=== PATIENT | female | born 1990 | race African-American/Black ===

== ENCOUNTER 2018-01-05 00:50 | Inpatient (IN) ==
[2018-01-05] MEDS ORDERED: Sod Chloride 0.9% Inj 1,000 ML IV.SIG ONE (05:36)
--- NOTE | 2018-01-05 06:21 | ED ---
HPI General Chief Complaint: Abdominal Pain Stated Complaint: Abd pain Time Seen by Provider: 01/05/18 02:55 Source: patient Mode of arrival: ambulatory Limitations: no limitations History of Present Illness HPI narrative: 27-year-old female presents to the emergency department with complaint of nausea abdominal pain and multiple episodes of diarrhea 1 week. No mucoid diarrhea no bloody diarrhea no hematochezia no melena. She denies vomiting. Patient states that no one in her household is ill. Patient states she finished antibiotic for UTI proximity to 3 weeks ago. Patient had no fever chills. Patient states multiple episodes daily of diarrhea but no weight loss and be taking oral hydration well. Appetite has not changed. Patient denies . Patient status post tubal ligation. Patient denies dietary indiscretion well water ingestion or foreign travel. Patient is unable to identify exacerbating or alleviating factors. complaint: abdominal pain Onset (ago): week(s) Pain Consistency: intermittent Location: diffuse Severity: moderate Quality: cramping Radiation: none Migration to: no migration Relieving factors: nothing Exacerbating factors: nothing Associated symptoms: nausea and diarrhea Related Data Patient : No Home Medications Medication Instructions Recorded Confirmed No Known Home Medications 01/05/18 01/05/18 Allergies Allergy/AdvReac Type Severity Reaction Status Date / Time prednisone AdvReac Mild Nausea/Vomi Unverified 12/17/16 13:41 ting Review of Systems ROS: all other systems reviewed are negative PMFSH Medical History Medical History Patient denies medical problems (Acute) Surgical History Surgical History No history of previous surgery (Acute) Social History Social History Substance History: No History of Abuse Smoking Status: Current every day smoker Tobacco Type: Cigarettes How Often Do You Have a Drink Containing Alcohol: 4 or more times a week Recent Travel in [facility] within the Last 8 Weeks: No Recent Out of Country Travel within the Last 8 Weeks: No Immunization History Tetanus Immunization: >5 Years Hx Influenza Vaccine This Season: No Exam Narrative Exam Narrative: GENERAL: Well-nourished, well-developed patient. SKIN: Focused skin assessment warm/dry. HEAD: Normocephalic. EYES: No scleral icterus. No injection or drainage. NECK: Supple, trachea midline. No JVD or lymphadenopathy. CARDIOVASCULAR: Regular rate and rhythm without murmurs, gallops, or rubs. RESPIRATORY: Breath sounds equal bilaterally. No accessory muscle use. GASTROINTESTINAL: Abdomen soft, non-tender, nondistended. MUSCULOSKELETAL: No cyanosis, or edema. BACK: Nontender without obvious deformity. No CVA tenderness. Course Initial Documented Vital Signs Temperature 97.8 F 01/05/18 00:54 Pulse Rate 75 01/05/18 00:54 Respiratory Rate 16 01/05/18 00:54 Blood Pressure 134/75 01/05/18 00:54 Pulse Oximetry 98 01/05/18 00:54 Last Documented Vital Signs Temperature 97.8 F 01/05/18 00:54 Pulse Rate 54 L 01/05/18 08:39 Respiratory Rate 20 01/05/18 08:39 Blood Pressure 85/48 L 01/05/18 08:39 Pulse Oximetry 100 01/05/18 08:39 Medical Decision Making MDM Narrative Medical decision making narrative: 27-year-old female with multiple episodes of watery diarrhea with nausea and intermittent crampy abdominal pain no fever no chills no dysuria no dietary indiscretion well water ingestion no foreign travel. IV access obtained specimens collected and sent for his Lab values are normal; CT imaging negative; patient is stable for outpatient management encouraged to follow clear liquid diet for next 1224 hrs. advance as tolerated bland/brat diet and regular diet and to use [id number] Imodium per package directions and follow-up with primary care provider Medical Screen Exam Complete: Yes Emergency Medical Condition: Yes Differential Diagnosis Differential Diagnosis: Diarrhea illness, gastroenteritis, UTI, electrolyte disturbance, bowel obstruction, colitis, Medical Records Medical records reviewed: Yes I reviewed the patient's medical records. Lab Data Lab results reviewed: Yes I reviewed the patient's lab results. Lab results narrative: poc : negative Result diagrams: 01/05/18 06:00 01/05/18 06:00 Lab Results 01/05/18 01/05/18 01/05/18 Range/Units 06:00 06:00 06:00 WBC 8.9 (4.0-11.0) th/mm3 RBC 4.97 (4.00-5.30) mil/mm3 Hgb 12.3 (11.6-15.3) gm/dL Hct 37.8 (35.0-46.0) % MCV 76.0 L (80.0-100.0) fL MCH 24.7 L (27.0-34.0) pg MCHC 32.5 (32.0-36.0) % RDW 15.2 (11.6-17.2) % Plt Count 394 (150-450) th/mm3 MPV 9.1 (7.0-11.0) fL Neut % (Auto) 49.3 (16.0-70.0) % Lymph % (Auto) 33.7 (9.0-44.0) % Perkins % (Auto) 9.8 H (0.0-8.0) % Eos % (Auto) 6.8 H (0.0-4.0) % Baso % (Auto) 0.4 (0.0-2.0) % Neut # (Auto) 4.4 (1.8-7.7) th/mm3 Lymph # (Auto) 3.0 (1.0-4.8) th/mm3 Perkins # (Auto) 0.9 (0.0-0.9) th/mm3 Eos # (Auto) 0.6 H (0.0-0.4) th/mm3 Baso # (Auto) 0.0 (0.0-0.2) th/mm3 WBC Differential . Differential Comment Auto diff final Sodium 139 (136-145) meq/L Potassium 4.0 (3.5-5.1) meq/L Chloride 106 (98-107) meq/L Carbon Dioxide 25.8 (21.0-32.0) meq/L Anion Gap 7 (5-15) meq/L BUN 11 (7-18) mg/dL Creatinine 0.90 (0.50-1.00) mg/dL Estimated GFR Greater than 89 (>89) mL/min Random Glucose 84 (74-106) mg/dL Calcium 9.1 (8.5-10.1) mg/dL Total Bilirubin 0.2 (0.2-1.0) mg/dL AST 29 (15-37) U/L ALT 30 (10-53) U/L Alkaline Phosphatase 104 (45-117) U/L Total Protein 8.3 H (6.4-8.2) g/dL Albumin 3.4 (3.4-5.0) g/dL Lipase 97 (73-393) U/L Urine Color Yellow (Yellw/Straw) Urine Clarity Hazy H (Clear) Urine pH 5.0 (5.0-8.5) Ur Specific [place] 1.026 (1.002-1.035) Urine Protein Negative (Neg-Trace) mg/dL Urine Glucose (UA) Negative (Negative) mg/dL Urine Ketones Negative (Negative) mg/dL Urine Occult Blood Negative (Negative) Urine Nitrate Negative (Negative) Urine Bilirubin Negative (Negative) Urine Urobilinogen Less than 2 (Less than 2) mg/dL Ur Leukocyte Esterase Negative (Negative) Urine RBC 1 (0-3) /hpf Urine WBC 1 (0-5) /hpf Ur Squamous Epith Cells 2 (0-5) /hpf Urine Mucus Few H (Occasional) /lpf Micro UA Comment Culture not ind Ur Microscopic Review Not Reportable Urine Culture Comments Culture not ind St C. diff Tox Epid 027 (Negative) 01/05/18 Range/Units 06:00 WBC (4.0-11.0) th/mm3 RBC (4.00-5.30) mil/mm3 Hgb (11.6-15.3) gm/dL Hct (35.0-46.0) % MCV (80.0-100.0) fL MCH (27.0-34.0) pg MCHC (32.0-36.0) % RDW (11.6-17.2) % Plt Count (150-450) th/mm3 MPV (7.0-11.0) fL Neut % (Auto) (16.0-70.0) % Lymph % (Auto) (9.0-44.0) % Perkins % (Auto) (0.0-8.0) % Eos % (Auto) (0.0-4.0) % Baso % (Auto) (0.0-2.0) % Neut # (Auto) (1.8-7.7) th/mm3 Lymph # (Auto) (1.0-4.8) th/mm3 Perkins # (Auto) (0.0-0.9) th/mm3 Eos # (Auto) (0.0-0.4) th/mm3 Baso # (Auto) (0.0-0.2) th/mm3 WBC Differential Differential Comment Sodium (136-145) meq/L Potassium (3.5-5.1) meq/L Chloride (98-107) meq/L Carbon Dioxide (21.0-32.0) meq/L Anion Gap (5-15) meq/L BUN (7-18) mg/dL Creatinine (0.50-1.00) mg/dL Estimated GFR (>89) mL/min Random Glucose (74-106) mg/dL Calcium (8.5-10.1) mg/dL Total Bilirubin (0.2-1.0) mg/dL AST (15-37) U/L ALT (10-53) U/L Alkaline Phosphatase (45-117) U/L Total Protein (6.4-8.2) g/dL Albumin (3.4-5.0) g/dL Lipase (73-393) U/L Urine Color (Yellw/Straw) Urine Clarity (Clear) Urine pH (5.0-8.5) Ur Specific [place] (1.002-1.035) Urine Protein (Neg-Trace) mg/dL Urine Glucose (UA) (Negative) mg/dL Urine Ketones (Negative) mg/dL Urine Occult Blood (Negative) Urine Nitrate (Negative) Urine Bilirubin (Negative) Urine Urobilinogen (Less than 2) mg/dL Ur Leukocyte Esterase (Negative) Urine RBC (0-3) /hpf Urine WBC (0-5) /hpf Ur Squamous Epith Cells (0-5) /hpf Urine Mucus (Occasional) /lpf Micro UA Comment Ur Microscopic Review Urine Culture Comments St C. diff Tox Epid 027 Negative (Negative) Imaging Data Radiologist's impression: Abdomen/Pelvis CT 01/05/18 05:36 CONCLUSION: 1. No acute findings. Discharge Plan Discharge Disposition Patient Disposition: 01 Discharge Home Discharge Condition Condition: Stable Discharge Details Diagnosis: Diarrhea Physicians Team ED Provider: Iona Rodriguez Primary Care Provider: Primary Care Chiqui Zhu Rxs /Orders / Referrals /Forms Prescriptions: No Action No Known Home Medications RF: 0 Discharge Instructions Additional Instructions: Follow clear liquid diet for next 12-24 hours advance diet as tolerated to bland /brat diet and regular diet avoiding fried and fatty foods Take Zofran as prescribed as needed for nausea and/or vomiting Increase fluid hydration May use 1-2 doses of [id number] Imodium per package directions Follow-up with your primary care provider Take acetaminophen/Tylenol as needed for fever 100.4F or greater Monitor temperature every 4 hours with thermometer and take antipyretic for fever 100.4F or greater Discharge Interventions Interventions: Vital Signs Last Done: 01/05/18 08:41 Status ED Status: With Doctor
[2018-01-05 06:26] LABS: Baso % (Auto) 0.4 % (0.0-2.0); Eos # (Auto) 0.6 th/mm3 (0.0-0.4); Eos % (Auto) 6.8 % (0.0-4.0); Hematocrit 37.8 % (35.0-46.0); Hemoglobin 12.3 gm/dL (11.6-15.3); Lymph % (Auto) 33.7 % (9.0-44.0); Mean Corpuscular HGB Conc 32.5 % (32.0-36.0); Mean Corpuscular Hemoglobin 24.7 pg (27.0-34.0); Mean Platelet Volume 9.1 fL (7.0-11.0); Mono # (Auto) 0.9 th/mm3 (0.0-0.9); Mono % (Auto) 9.8 % (0.0-8.0); Neut # (Auto) 4.4 th/mm3 (1.8-7.7); Neut % (Auto) 49.3 % (16.0-70.0); Platelet Count 394 th/mm3 (150-450); Red Blood Count 4.97 mil/mm3 (4.00-5.30); Red Cell Distribution Width 15.2 % (11.6-17.2); White Blood Count 8.9 th/mm3 (4.0-11.0)
[2018-01-05 06:35] LABS: Bilirubin,Urine Negative (Negative); Clarity,Urine Hazy (Clear); Color,Urine Yellow (Yellw/Straw); Glucose,Urine (UA) Negative (Negative); Leukocyte Esterase,Urine Negative (Negative); Mucus,Urine Few /lpf (Occasional); Nitrite,Urine Negative (Negative); Specific Gravity,Urine 1.026 (1.002-1.035); Squamous Epithelial Cell,Urine 2 /hpf (0-5)
[2018-01-05 06:40] LABS: Albumin 3.4 g/dL (3.4-5.0); Anion Gap 7 meq/L (5-15); Aspartate Aminotransferase 29 U/L (15-37); Blood Urea Nitrogen 11 mg/dL (7-18); Calcium 9.1 mg/dL (8.5-10.1); Carbon Dioxide 25.8 meq/L (21.0-32.0); Chloride 106 meq/L (98-107); Glomerular Filtration Rate Greater Than 89 mL/min (>89); Glucose,Random 84 mg/dL (74-106); Lipase 97 U/L (73-393); Sodium 139 meq/L (136-145)
[2018-01-05 06:41] LABS: Alanine Aminotransferase 30 U/L (10-53)
[2018-01-05 06:44] LABS: Alkaline Phosphatase 104 U/L (45-117); Total Protein 8.3 g/dL (6.4-8.2)
--- NOTE | 2018-01-05 08:28 | CT ---
EXAM DATE: 01/05/2018 8:18 AM EDT AGE/SEX: 27 years / Female INDICATIONS: Upper abdominal pain for one week. CLINICAL DATA: This is the patient's initial encounter. Patient reports that signs and symptoms have been present for 1 week and indicates a pain score of 5/10. MEDICAL/SURGICAL HISTORY: None. None. ORAL CONTRAST: No oral contrast ingested. RADIATION DOSE: 15.74 CTDI (mGy) [place]PAR[place] [facility] [place] 10/21/2014. . TECHNIQUE: Multiple contiguous axial images were obtained through the abdomen and pelvis following b olus infusion of 75 ml Omnipaque 350 (iohexol) nonionic water-soluble contrast as a single exam dos e. No oral contrast ingested. Using automated exposure control and adjustment of the mA and/or kV ac cording to patient size, radiation dose was kept as low as reasonably achievable to obtain optimal di agnostic quality images. DICOM format image data is available electronically for review and comparis on. FINDINGS: Lung bases are clear. Osseous structures are intact. No pleural or pericardial effusions. Liver, gall bladder, bilateral kidneys, adrenals, spleen, pancreas unremarkable. Urinary bladder, uterus and ovar ies are unremarkable. No evidence of bowel obstruction. Small and large bowel are normal in appearanc e. The appendix is normal. There are subcentimeter lymph nodes seen in the right lower quadrant. This is stable. CONCLUSION: 1. No acute findings. Electronically signed by: Kaveh Alas MD 01/05/2018 8:27 AM EDT
[2018-01-05] MEDS ORDERED: Sod Chloride 0.9% Inj 1,000 ML IV.SIG SCH (09:00)
[2018-01-05] MEDS ORDERED: metroNIDAZOLE 500 MG Tablet PO ONE (15:03)
[2018-01-05] MEDS ORDERED: Bisacodyl 10 MG Supp RECTAL PRN (15:51)
[2018-01-05] MEDS ORDERED: Acetaminophen 325 MG Tablet PO PRN (15:52)
--- NOTE | 2018-01-05 16:57 | P.HP ---
History of Present Illness Service: [facility] Primary Care Physician: No Primary Care Physician Chief Complaint: Abdominal Pain History of Present Illness: Patient is a 27-year-old female with past medical history of asthma who came into the hospital for evaluation of abdominal pain, diarrhea 1 week. Patient states that she went to her new primary care office about 3 weeks ago and was diagnosed with urinary tract infection versus STD and was given 2 different types of antibiotic, she forgot the name and also "something for yeast." She took the medications and was having diarrhea with it, she thought it was just a side effect. States that it stopped after a week but then last week she started to have diarrhea again, she took Pepto-Bismol which she states that it did not work for her. She denies any fevers, chills, nausea, vomiting. Complaints of abdominal pain or discomfort states that it is like a stabbing pain midepigastric region towards the left side of her abdomen, 7/10, does not know what aggravates or relieved pain. Continues to have diarrhea, reports about 10-15 times a days, sore rectum. Denies SOB/ dyspnea. Denies chest pain, palpitations, headaches, dizziness. Denies dysuria. C. difficile PCR positive, C. difficile GDH positive CT abdomen and pelvis without any acute findings. - Diagnosis (1) Clostridium difficile diarrhea Inpatient Certification: C. difficile PCR positive, C. difficile GDH positive Estimated Total Length of Stay (Days): 2 Plans for Post Hospital Care: Home Review of Systems All other systems reviewed negative except as stated in [place] - History History Provided By: Patient - Medical History Medical History: Medical History (Last Updated 01/05/18 @ 16:17 by ELROY Lovell) Asthma - Surgical History Surgical History: Surgical History (Last Updated 01/05/18 @ 16:17 by ELROY Lovell) H/O tubal ligation - Family History Family History: Family History (Last Reviewed 01/05/18 @ 16:18 by ELROY Lovell) Father HTN (hypertension) Diabetes Mother HTN (hypertension) Diabetes - Tobacco History Tobacco Use In Past 30 Days: No Smoking Status: Never smoker - Alcohol History How Often Do You Have a Drink Containing Alcohol: 2 to 4 times a month - Substance Use History Substance History: No History of Abuse - Travel History Recent Travel in the [place] Within the Last 8 Weeks: No Recent Travel Out of the Country Within the Last 8 Weeks: No - Immunization History Tetanus Immunization: >5 Years Hx Influenza Vaccine This Season: No Medications and Allergies Active Medications: Active Medications Sodium Chloride (Ns Inj) 1,000 mls @ 0 mls/hr IV.SIG BOLUS TEVIN Last Infusion: 01/05/18 10:22 Dose: Infused Sodium Chloride (Ns Flush) 2 ml IV.FLUSH PRN PRN PRN Reason: FLUSH AFTER USING IV ACCESS Vancomycin HCl (Vancomycin Po) 125 mg PO ONCE ONE Stop: 01/05/18 16:01 Allergies Allergy/AdvReac Type Severity Reaction Status Date / Time prednisone AdvReac Mild Nausea/Vomi Unverified 01/05/18 14:47 ting Home Medications Medication Instructions Recorded Confirmed Type No Known Home Medications 01/05/18 01/05/18 History Exam Vital signs: Vital Signs 01/05/18 00:54 01/05/18 06:26 01/05/18 08:39 Temperature 97.8 F Pulse Rate 75 61 54 L Respiratory Rate 16 18 20 Blood Pressure 134/75 132/73 85/48 L Pulse Oximetry 98 96 100 01/05/18 08:41 01/05/18 12:00 01/05/18 14:26 Temperature Pulse Rate 75 84 70 Respiratory Rate 18 18 18 Blood Pressure 102/57 L 101/58 L 107/69 Pulse Oximetry 99 99 99 Intake & Output 01/04/18 01/05/18 01/05/18 18:59 06:59 18:59 Intake Total 1450 / 1450 Balance 1450 / 1450 Weight 92 kg Intake: IV 1450 / 1450 NS Inj 1,000 ML @ Wide Open IV. 1450 / 1450 SIG BOLUS TEVIN Rx#:[id number] Narrative: GENERAL: This is an obese patient, in no apparent distress. SKIN: Warm and dry. HEENT: Normocephalic. Pupils equal round and reactive. Nose without bleeding. Airway patent. NECK: Trachea midline. Supple. CARDIOVASCULAR: Regular rate and rhythm without murmurs, gallops, or rubs. RESPIRATORY: Coarse BS. Min wheeze. GASTROINTESTINAL: Abdomen soft, nondistended. Bowel Sounds normoactive x4. Tenderness to palpate midepigastric region towards the left quadrant MUSCULOSKELETAL: Extremities without clubbing, cyanosis, or edema. NEUROLOGICAL: Awake and alert. Oriented to time, place, person. No focal neuro deficit. Moves all extremities. Normal speech. Results - Labs CBC & Chem 7: 01/05/18 06:00 01/05/18 06:00 Labs: Laboratory Results - last 24 hr 01/05/18 01/05/18 01/05/18 06:00 06:00 06:00 WBC 8.9 RBC 4.97 Hgb 12.3 Hct 37.8 MCV 76.0 L MCH 24.7 L MCHC 32.5 RDW 15.2 Plt Count 394 MPV 9.1 Neut % (Auto) 49.3 Lymph % (Auto) 33.7 Turner % (Auto) 9.8 H Eos % (Auto) 6.8 H Baso % (Auto) 0.4 Neut # (Auto) 4.4 Lymph # (Auto) 3.0 Turner # (Auto) 0.9 Eos # (Auto) 0.6 H Baso # (Auto) 0.0 WBC Differential . Differential Comment Auto diff final Sodium 139 Potassium 4.0 Chloride 106 Carbon Dioxide 25.8 Anion Gap 7 BUN 11 Creatinine 0.90 Estimated GFR Greater than 89 Random Glucose 84 Calcium 9.1 Total Bilirubin 0.2 AST 29 ALT 30 Alkaline Phosphatase 104 Total Protein 8.3 H Albumin 3.4 Lipase 97 Urine Color Yellow Urine Clarity Hazy H Urine pH 5.0 Ur Specific [place] 1.026 Urine Protein Negative Urine Glucose (UA) Negative Urine Ketones Negative Urine Occult Blood Negative Urine Nitrate Negative Urine Bilirubin Negative Urine Urobilinogen Less than 2 Ur Leukocyte Esterase Negative Urine RBC 1 Urine WBC 1 Ur Squamous Epith Cells 2 Urine Mucus Few H Micro UA Comment Culture not ind Ur Microscopic Review Not Reportable Urine Culture Comments Culture not ind St C. diff Tox Epid 027 C. difficile Tox (PCR) 01/05/18 06:00 WBC RBC Hgb Hct MCV MCH MCHC RDW Plt Count MPV Neut % (Auto) Lymph % (Auto) Turner % (Auto) Eos % (Auto) Baso % (Auto) Neut # (Auto) Lymph # (Auto) Turner # (Auto) Eos # (Auto) Baso # (Auto) WBC Differential Differential Comment Sodium Potassium Chloride Carbon Dioxide Anion Gap BUN Creatinine Estimated GFR Random Glucose Calcium Total Bilirubin AST ALT Alkaline Phosphatase Total Protein Albumin Lipase Urine Color Urine Clarity Urine pH Ur Specific [place] Urine Protein Urine Glucose (UA) Urine Ketones Urine Occult Blood Urine Nitrate Urine Bilirubin Urine Urobilinogen Ur Leukocyte Esterase Urine RBC Urine WBC Ur Squamous Epith Cells Urine Mucus Micro UA Comment Ur Microscopic Review Urine Culture Comments St C. diff Tox Epid 027 Negative C. difficile Tox (PCR) Positive H - Imaging Impressions Abdomen/Pelvis CT 01/05/18 05:36 CONCLUSION: 1. No acute findings. Caprini VTE Risk Assessment Caprini VTE Risk Assessment: No/Low Risk (score <= 1) Caprini Risk Assessment Model: Point Value = 1 Point Value = 2 Point Value = 3 Point Value = 5 Age 41-60 Minor surgery BMI > 25 kg/m2 Swollen legs Varicose veins or History of unexplained or recurrent spontaneous Oral contraceptives or hormone replacement Sepsis (< 1 month) Serious lung disease, including pneumonia (< 1 month) Abnormal pulmonary function Acute myocardial infarction Congestive heart failure (< 1 month) History of inflammatory bowel disease Medical patient at bed rest Age 61-74 Arthroscopic surgery Major open surgery (> 45 min) Laparoscopic surgery (> 45 min) Malignancy Confined to bed (> 72 hours) Immobilizing plaster cast Central venous access Age >= 75 History of VTE Family history of VTE Factor V Leiden Prothrombin [id number] Lupus anticoagulant Anticardiolipin antibodies Elevated serum homocysteine Heparin-induced thrombocytopenia Other congenital or acquired thrombophilia Stroke (< 1 month) Elective arthroplasty Hip, pelvis, or leg fracture Acute spinal cord injury (< 1 month) Prophylaxis Regimen: Total Risk Factor Score Risk Level Prophylaxis Regimen 0-1 Low Early ambulation 2 Moderate Order ONE of the following: *Sequential Compression Device (SCD) *Heparin 5000 units SQ BID 3-4 Higher Order ONE of the following medications: *Heparin 5000 units SQ TID *Enoxaparin/Lovenox 40 mg SQ daily (WT < 150 kg, CrCl > 30 mL/min) *Enoxaparin/Lovenox 30 mg SQ daily (WT < 150 kg, CrCl > 10-29 mL/min) *Enoxaparin/Lovenox 30 mg SQ BID (WT < 150 kg, CrCl > 30 mL/min) AND/OR *Sequential Compression Device (SCD) 5 or more Highest Order ONE of the following medications: *Heparin 5000 units SQ TID (Preferred with Epidurals) *Enoxaparin/Lovenox 40 mg SQ daily (WT < 150 kg, CrCl > 30 mL/min) *Enoxaparin/Lovenox 30 mg SQ daily (WT < 150 kg, CrCl > 10-29 mL/min) *Enoxaparin/Lovenox 30 mg SQ BID (WT < 150 kg, CrCl > 30 mL/min) AND *Sequential Compression Device (SCD) Assessment and Plan - Assessment (1) Clostridium difficile diarrhea Code(s): A04.72 - Enterocolitis due to Clostridium difficile, not specified as recurrent Status: Acute - Plan Patient is a 27-year-old female with past medical history of asthma who came into the hospital for evaluation of abdominal pain, diarrhea 1 week. Cdiff Diarrhea, acute -C. difficile PCR positive, C. difficile GDH positive -CT abdomen and pelvis without any acute findings -Start Vanco PO 125mg, QID -Lactinex TID -IVF for hydration for now -Recheck labs in AM. Check WBC, if no leukocytosis may be able to discharge with continued use of vancomycin Total 14 days. Asthma, not in exacerbation -Duonebs PRN DVT Prop Lovenox Code Status: Full Code Discussed Condition With: Patient, nursing, Dr. Owens Discharge Planning: If there is no leukocytosis tomorrow, may DC home with vancomycin p.o., Lactinex.
[2018-01-05] MEDS: Enoxaparin Inj 40 MG/0.4 ML Syringe SQ SCH (17:18)
[2018-01-05] MEDS: Lactobacillus Acidophilus/L. Spores Tablet PO SCH (17:19)
[2018-01-05] MEDS: Sod Chloride 0.9% Inj 1,000 ML IV.CONT SCH (17:24)
[2018-01-06] MEDS: Sod Chloride 0.9% Inj 1,000 ML IV.CONT SCH ×3 (03:14→21:56)
[2018-01-06 05:41] LABS: Baso % (Auto) 0.5 % (0.0-2.0); Eos # (Auto) 0.5 th/mm3 (0.0-0.4); Eos % (Auto) 7.4 % (0.0-4.0); Hematocrit 33.3 % (35.0-46.0); Hemoglobin 10.9 gm/dL (11.6-15.3); Lymph # (Auto) 2.8 th/mm3 (1.0-4.8); Lymph % (Auto) 44.7 % (9.0-44.0); Mean Corpuscular HGB Conc 32.6 % (32.0-36.0); Mean Corpuscular Hemoglobin 24.7 pg (27.0-34.0); Mean Corpuscular Volume 75.7 fL (80.0-100.0); Mean Platelet Volume 8.4 fL (7.0-11.0); Mono # (Auto) 0.6 th/mm3 (0.0-0.9); Mono % (Auto) 9.2 % (0.0-8.0); Neut # (Auto) 2.4 th/mm3 (1.8-7.7); Neut % (Auto) 38.2 % (16.0-70.0); Platelet Count 344 th/mm3 (150-450); Red Cell Distribution Width 15.1 % (11.6-17.2); White Blood Count 6.2 th/mm3 (4.0-11.0)
[2018-01-06 06:16] LABS: Alanine Aminotransferase 22 U/L (10-53); Albumin 2.6 g/dL (3.4-5.0); Alkaline Phosphatase 73 U/L (45-117); Anion Gap 10 meq/L (5-15); Aspartate Aminotransferase 13 U/L (15-37); Blood Urea Nitrogen 7 mg/dL (7-18); Calcium 8.1 mg/dL (8.5-10.1); Carbon Dioxide 25.5 meq/L (21.0-32.0); Chloride 108 meq/L (98-107); Glomerular Filtration Rate Greater Than 89 mL/min (>89); Glucose,Random 92 mg/dL (74-106); Potassium 4.1 meq/L (3.5-5.1); Sodium 143 meq/L (136-145); Total Protein 6.6 g/dL (6.4-8.2)
[2018-01-06 08:14] VITALS: RESP 16
[2018-01-06] MEDS: Lactobacillus Acidophilus/L. Spores Tablet PO SCH ×3 (09:40→17:14)
--- NOTE | 2018-01-06 09:45 | P.DS ---
Date of admission: 01/05/18 15:11 Primary care physician: UNKNOWN Brief History from admission: Patient is a 27-year-old female with past medical history of asthma who came into the hospital for evaluation of abdominal pain, diarrhea 1 week. Patient states that she went to her new primary care office about 3 weeks ago and was diagnosed with urinary tract infection versus STD and was given 2 different types of antibiotic, she forgot the name and also "something for yeast." She took the medications and was having diarrhea with it, she thought it was just a side effect. States that it stopped after a week but then last week she started to have diarrhea again, she took Pepto-Bismol which she states that it did not work for her. She denies any fevers, chills, nausea, vomiting. Complaints of abdominal pain or discomfort states that it is like a stabbing pain midepigastric region towards the left side of her abdomen, /, does not know what aggravates or relieved pain. Continues to have diarrhea, reports about 10-15 times a days, sore rectum. Denies SOB/ dyspnea. Denies chest pain, palpitations, headaches, dizziness. Denies dysuria. C. difficile PCR positive, C. difficile GDH positive CT abdomen and pelvis without any acute findings. DS: Summary Hospital Course: Patient seen and examined this morning resting in bed comfortably, appears to be in no acute distress. Complains of migraine headache this morning with positive photophobia, phonophobia and dizziness. Patient reports she has hypotension chronically and in the past has been given something for this however this caused her blood pressure to increase to the point where this had to be discontinued. She is currently being followed by [place] physician for workup on etiology behind hypotension, dizziness, weight gain, and polyuria. Patient also complains of some epigastric pain as well as abdominal pressure, copious amounts of flatus. Patient denies any further diarrhea, some nausea yesterday with vomiting despite antiemetics. This morning she is eating her breakfast with no vomiting so far. She would like to go home, requesting something for migraine headache. - Time Spent with Patient Total time spent providing and/or coordinating discharge services: Exam Vital signs: Vital Signs 01/05/18 12:00 01/05/18 14:26 01/05/18 17:25 Temperature 97.5 F L Pulse Rate 84 70 64 Respiratory Rate 18 18 18 Blood Pressure 101/58 L 107/69 126/64 Pulse Oximetry 99 99 97 01/05/18 20:00 01/05/18 22:47 01/06/18 00:00 Temperature 97.3 F L 97 F L Pulse Rate 58 L 60 Respiratory Rate 17 17 17 Blood Pressure 110/53 L 117/58 L Pulse Oximetry 98 99 01/06/18 08:00 Temperature 97.5 F L Pulse Rate 63 Respiratory Rate 16 Blood Pressure 95/55 L Pulse Oximetry 95 Intake & Output 01/05/18 01/06/18 01/06/18 18:59 06:59 18:59 Intake Total 1999 1480 / 1480 Balance 1999 1480 / 1480 Weight 92 kg Intake: IV 1999 1000 / 1000 NS Inj 1,000 ML @ 100 mls/hr IV 1000 / 1000 .CONT .Q10H TEVIN Rx#:[id number] NS Inj 1,000 ML @ Wide Open IV. 1999 SIG BOLUS ONE Rx#:[id number] Oral 480 / 480 Other: # Voids 4 Results Labs on day of discharge: Labs from last 24 hours 01/06/18 01/06/18 04:35 04:35 WBC 6.2 RBC 4.40 Hgb 10.9 L Hct 33.3 L MCV 75.7 L MCH 24.7 L MCHC 32.6 RDW 15.1 Plt Count 344 MPV 8.4 Neut % (Auto) 38.2 Lymph % (Auto) 44.7 H [place] % (Auto) 9.2 H Eos % (Auto) 7.4 H Baso % (Auto) 0.5 Neut # (Auto) 2.4 Lymph # (Auto) 2.8 [place] # (Auto) 0.6 Eos # (Auto) 0.5 H Baso # (Auto) 0.0 WBC Differential . Differential Comment Auto diff final Sodium 143 Potassium 4.1 Chloride 108 H Carbon Dioxide 25.5 Anion Gap 10 BUN 7 Creatinine 0.84 Estimated GFR Greater than 89 Random Glucose 92 Calcium 8.1 L D Total Bilirubin 0.2 AST 13 L ALT 22 Alkaline Phosphatase 73 Total Protein 6.6 D Albumin 2.6 L D - Impressions ITS Impressions Abdomen/Pelvis CT 01/05/18 05:36 CONCLUSION: 1. No acute findings. Discharge Plan - Discharge Condition Condition: Stable - Discharge Order Discharge Orders: Discharge Order (Routine); Ordered 01/05/18 Ordered By: Yo Rinaldi - Physicians Team Primary Care Provider: UNKNOWN, Attending Provider: Sheng Barr
--- NOTE | 2018-01-06 11:49 | XR ---
EXAM DATE: 01/06/2018 10:57 AM EDT AGE/SEX: 27 years / Female INDICATIONS: Epigastric pain. CLINICAL DATA: This is the patient's subsequent encounter. Patient reports that signs and symptoms h ave been present for 1 week and indicates a pain score of 5/10. MEDICAL/SURGICAL HISTORY: None. None. COMPARISON: [facility] [place], ABDOMEN FLAT & UPRIGHT, 10/21/2014. . FINDINGS: The abdominal bowel gas pattern is normal. There are some tablets noted in the colon. There is some stool throughout the colon. No abnormal masses, calcifications, or organomegaly is seen. The osseous structures are unremarkable. No significant change compared to 2014. CONCLUSION: Benign-appearing abdomen. Electronically signed by: Yobani Nunez MD 01/06/2018 11:47 AM EDT
[2018-01-06 12:33] VITALS: O2SAT 100
--- NOTE | 2018-01-06 12:43 | P.PN ---
Subjective Interval history: Patient seen and examined this morning resting in bed comfortably, appears to be in no acute distress. Complains of migraine headache this morning with positive photophobia, phonophobia and dizziness. Patient reports she has hypotension chronically and in the past has been given something for this however this caused her blood pressure to increase to the point where this had to be discontinued. She is currently being followed by [facility] physician for workup on etiology behind hypotension, dizziness, weight gain, and polyuria. Patient also complains of some epigastric pain as well as abdominal pressure, copious amounts of flatus. Patient denies any further diarrhea, some nausea yesterday with vomiting despite antiemetics. This morning she is eating her breakfast with no vomiting so far. She would like to go home, requesting something for migraine headache. Later this afternoon nurse reports patient with episode of projectile vomiting. Discharge held, KUB reviewed and benign, start IV Reglan. If still ongoing consider GI consult. Patient received Zofran with relief of nausea, discussed with RN if tolerating dinner can discharge home. Physical Exam Vital signs: Vital Signs 01/05/18 14:26 01/05/18 17:25 01/05/18 20:00 Temperature 97.5 F L 97.3 F L Pulse Rate 70 64 58 L Respiratory Rate 18 18 17 Blood Pressure 107/69 126/64 110/53 L Pulse Oximetry 99 97 98 01/05/18 22:47 01/06/18 00:00 01/06/18 08:00 Temperature 97 F L 97.5 F L Pulse Rate 60 63 Respiratory Rate 17 17 16 Blood Pressure 117/58 L 95/55 L Pulse Oximetry 99 95 01/06/18 12:00 Temperature 97.8 F Pulse Rate 55 L Respiratory Rate 16 Blood Pressure 101/55 L Pulse Oximetry 100 Intake & Output 01/05/18 01/06/18 01/06/18 18:59 06:59 18:59 Intake Total 1999 1480 / 1480 Balance 1999 1480 / 1480 Weight 92 kg Intake: IV 1999 1000 / 1000 NS Inj 1,000 ML @ 100 mls/hr IV 1000 / 1000 .CONT .Q10H TEVIN Rx#:[id number] NS Inj 1,000 ML @ Wide Open IV. 1999 SIG BOLUS ONE Rx#:[id number] Oral 480 / 480 Other: # Voids 4 Narrative: GENERAL: Obese -[place] female in no acute distress. SKIN: Warm and dry. HEENT: Normocephalic. Pupils equal round and reactive. Nose without bleeding. Airway patent. NECK: Trachea midline. Supple. CARDIOVASCULAR: Regular rate and rhythm without murmurs, gallops, or rubs. RESPIRATORY: Clear throughout, diminished at bases likely secondary to body habitus. GASTROINTESTINAL: Abdomen soft, nondistended. Bowel Sounds normoactive x4. Tenderness to palpate midepigastric region. MUSCULOSKELETAL: Extremities without clubbing, cyanosis, or edema. NEUROLOGICAL: Awake and alert. Oriented to time, place, person. No focal neuro deficit. Moves all extremities. Normal speech. Results - Labs CBC & Chem 7: 01/06/18 04:35 01/06/18 04:35 Laboratory Results - last 24 hr 01/06/18 01/06/18 01/06/18 04:35 04:35 04:35 WBC 6.2 RBC 4.40 Hgb 10.9 L Hct 33.3 L MCV 75.7 L MCH 24.7 L MCHC 32.6 RDW 15.1 Plt Count 344 MPV 8.4 Neut % (Auto) 38.2 Lymph % (Auto) 44.7 H [place] % (Auto) 9.2 H Eos % (Auto) 7.4 H Baso % (Auto) 0.5 Neut # (Auto) 2.4 Lymph # (Auto) 2.8 [place] # (Auto) 0.6 Eos # (Auto) 0.5 H Baso # (Auto) 0.0 WBC Differential . Differential Comment Auto diff final Sodium 143 Potassium 4.1 Chloride 108 H Carbon Dioxide 25.5 Anion Gap 10 BUN 7 Creatinine 0.84 Estimated GFR Greater than 89 Random Glucose 92 Calcium 8.1 L D Total Bilirubin 0.2 AST 13 L ALT 22 Alkaline Phosphatase 73 Total Protein 6.6 D Albumin 2.6 L D Beta HCG, Qual Less than 1.0 Microbiology 01/05/18 06:00 Stool Clostridium difficile GDH Antigen - Final C. difficile Antigen Positive 01/05/18 06:00 Stool Clostridium difficile Toxin Assay - Final Negative - No C. difficile Toxin A or B detected. - Imaging Impressions Abdomen X-Ray 01/06/18 00:00 CONCLUSION: Benign-appearing abdomen. Assessment and Plan - Plan [facility] is a 27-year-old female with past medical history of asthma who came into the hospital for evaluation of abdominal pain, diarrhea 1 week. Cdiff Diarrhea, acute Nausea/vomiting Epigastric pain Gas -C. difficile PCR positive, C. difficile GDH positive -CT abdomen and pelvis without any acute findings -Start Vanco PO 125mg, QID and Lactinex TID -Ongoing nausea and vomiting, continue IV hydration. -CBC this morning with no leukocytosis, electrolytes stable. -KUB benign, as needed Zofran for nausea. Nausea and vomiting could possibly be related to vancomycin. Will try to have patient eat dinner first followed by a dose of vancomycin, if tolerating diet can discharge home. Asthma, not in exacerbation -Duonebs PRN DVT Prop Lovenox Discussed Condition With: Discussed with patient and RN. Discharge Planning: If tolerating diet with no ongoing nausea or vomiting and transplant case manager can provide assistance for vancomycin prescription can discharge home later today.
[2018-01-06] MEDS: Enoxaparin Inj 40 MG/0.4 ML Syringe SQ SCH (17:14)
[2018-01-06 17:46] VITALS: BP 119/61; PULSE 59; TEMP 97.4
--- NOTE | 2018-01-07 19:02 | P.DS ---
Date of admission: 01/05/18 15:11 Primary care physician: UNKNOWN Attending physician on discharge: Sheng Barr Anticipated date of discharge: 01/06/18 Brief History from admission: Patient is a 27-year-old female with past medical history of asthma who came into the hospital for evaluation of abdominal pain, diarrhea 1 week. Patient states that she went to her new primary care office about 3 weeks ago and was diagnosed with urinary tract infection versus STD and was given 2 different types of antibiotic, she forgot the name and also "something for yeast." She took the medications and was having diarrhea with it, she thought it was just a side effect. States that it stopped after a week but then last week she started to have diarrhea again, she took Pepto-Bismol which she states that it did not work for her. She denies any fevers, chills, nausea, vomiting. Complaints of abdominal pain or discomfort states that it is like a stabbing pain midepigastric region towards the left side of her abdomen, /10, does not know what aggravates or relieved pain. Continues to have diarrhea, reports about 10-15 times a days, sore rectum. Denies SOB/ dyspnea. Denies chest pain, palpitations, headaches, dizziness. Denies dysuria. C. difficile PCR positive, C. difficile GDH positive CT abdomen and pelvis without any acute findings. DS: Medications - Discharge Medications Prescriptions: acidophilus-sporogenes [Acidophilus Ex Str (L. sporog)] 1 tab PO TID #90 tab ondansetron [Zofran ODT] 4 mg PO Q6-8H PRN #10 tab PRN Reason: Nausea And Vomiting vancomycin 125 mg PO QID 14 Days #56 each DS: Summary Hospital Course: Patient is a 27-year-old female with past medical history of asthma who came into the hospital for evaluation of abdominal pain, diarrhea 1 week. Patient was started on p.o. vancomycin as well as like to bacillus 3 times daily. Improvement in diarrhea however following this had nausea and vomiting which was relieved with Zofran. Repeat KUB was benign. Later in the day patient tolerated dinner and was ready to go home. Prescription sent to inpatient pharmacy to assist with filling. Discussed with patient the importance of continuing her follow-up with [facility] for ongoing workup regarding her hypotension. - Time Spent with Patient Total time spent providing and/or coordinating discharge services: Less than 30 minutes Exam Vital signs: Intake & Output 01/06/18 01/07/18 01/07/18 18:59 06:59 18:59 Intake Total 1620 / 1620 Balance 1620 / 1620 Intake: IV 1000 / 1000 NS Inj 1,000 ML @ 100 mls/hr IV 1000 / 1000 .CONT .Q10H TEVIN Rx#:[id number] Oral 620 / 620 Other: # Voids 3 Date of Last Bowel Movement 01/06/18 # Bowel Movements 0 Narrative: GENERAL: Obese -[place] female in no acute distress. SKIN: Warm and dry. HEENT: Normocephalic. Pupils equal round and reactive. Nose without bleeding. Airway patent. NECK: Trachea midline. Supple. CARDIOVASCULAR: Regular rate and rhythm without murmurs, gallops, or rubs. RESPIRATORY: Clear throughout, diminished at bases likely secondary to body habitus. GASTROINTESTINAL: Abdomen soft, nondistended. Bowel Sounds normoactive x4. Tenderness to palpate midepigastric region. MUSCULOSKELETAL: Extremities without clubbing, cyanosis, or edema. NEUROLOGICAL: Awake and alert. Oriented to time, place, person. No focal neuro deficit. Moves all extremities. Normal speech. Results Procedures completed during hospitalization: none - Impressions ITS Impressions Abdomen/Pelvis CT 01/05/18 05:36 CONCLUSION: 1. No acute findings. Abdomen X-Ray 01/06/18 00:00 CONCLUSION: Benign-appearing abdomen. Discharge Plan - Discharge Disposition Patient Disposition: 01 Discharge Home - Discharge Condition Condition: Stable - Discharge Order Discharge Orders: Discharge Order (Routine); Ordered 01/05/18 Ordered By: Yo Rinaldi - Physicians Team Primary Care Provider: UNKNOWN, Attending Provider: Sheng Barr
== END 2018-01-06 23:17 | disposition home or self-care (01) ==
LOC: NEPC 00:50 → NEDA 15:11 → N07 17:03
PROVIDERS: ADMIT Hospitalist; ATTEND Hospitalist